=== PATIENT | female | born 1985 | race Caucasian/White ===

== ENCOUNTER 2018-08-05 15:14 | Emergency (ER) | payer OTHER ==
[~2018-08-05] VITALS: Ht 162.6 cm; Wt 62.6 kg
== END 2018-08-05 19:28 | disposition home or self-care (01) ==
LOC: ER 15:14
DX: O20.0 Threatened abortion (principal)

== ENCOUNTER → 2018-10-20 | Emergency (ER) | payer OTHER ==
[~2018-10-20] VITALS: Ht 154.9 cm; Wt 63.5 kg
[~2018-10-20] MED LIST: PRENA1 CHEW TA1.4 MG; RELAGESIC 5001 EACH PO
== END | disposition home or self-care (01) ==
LOC: ER 22:15
DX: M54.2 Cervicalgia (principal); M62.838 Other muscle spasm

== ENCOUNTER 2021-01-24 21:52 | Emergency (ER) | payer OTHER ==
[~2021-01-24] VITALS: Ht 157.5 cm; Wt 64.9 kg
[2021-01-25] MEDS ORDERED: PEPCID40 MG PO (03:29)
[2021-01-25] MEDS ORDERED: ZOFRAN8 MG PO (03:29)
== END 2021-01-25 04:16 ==
LOC: ER 21:52
DX: R11.2 Nausea with vomiting, unspecified (principal); R10.9 Unspecified abdominal pain